=== PATIENT | male | born 1965 | race Caucasian/White ===

== ENCOUNTER 2021-02-17 13:20 | Emergency (ER) | payer OTHER, SELFPAY ==
[2021-02-17 14:00] VITALS: BP 142/85; PULSE 128; RESP 21; TEMP 39.1; O2SAT 94; BMI 27.6
--- NOTE | 2021-02-17 14:24 | XR_ITS ---
PROCEDURE INFORMATION: Exam: XR Chest Exam date and time: 02/17/2021 2:24 PM Age: 55 years old Clinical indication: Patient HX: H/o covid 12 days ago. C/O cough and fever TECHNIQUE: Imaging protocol: XR of the chest. Views: 2 views. COMPARISON: No relevant prior studies available. FINDINGS: Lungs: Diffuse patchy airspace opacities noted throughout the lungs bilaterally. Commonly reported imaging features of COVID-19 pneumonia are present. Pleural spaces: Unremarkable. No pleural effusion. No pneumothorax. Heart/Mediastinum: Unremarkable. No cardiomegaly. Bones/joints: The thoracic spine demonstrates mild degenerative changes at multiple levels. IMPRESSION: 1. Diffuse patchy airspace opacities noted throughout the lungs bilaterally. 2. Commonly reported imaging features of COVID-19 pneumonia are present. Other processes such as influenza pneumonia and organizing pneumonia, as can be seen with drug toxicity and connective tissue disease, can cause a similar imaging pattern. (Reference: Reyes) REFERENCES: Reyes Pineda, et al., Radiological Society of [place] Expert Consensus Statement on Reporting Chest CT Findings Related to COVID-19. Endorsed by the Society of Thoracic Radiology, the [place] [employer], and RSNA. Published December 13, 2019.
--- NOTE | 2021-02-17 14:59 | HMH.EDUTC ---
[facility] Disposition Clinical Impression: COVID-19, Viral pneumonia Disposition: Still a Patient Condition on Discharge: Fair Instructions: Preventing the Spread of Coronavirus Discharge Instructions Referrals: Provider,Referral, [Primary Care Provider] - Medical Decision Making - Medical Records Medical records reviewed: No: I reviewed the patient's medical records. - Juan Inquiry Pt receiving controlled substance: No Vital Signs: 02/17/21 14:00 Temperature 102.4 F H Temperature Source Oral Pulse Rate [Left Brachial] 128 H Respiratory Rate 21 Blood Pressure [Left Arm] 142/85 H Blood Pressure Mean [Left Arm] 104 Blood Pressure Source [Left Arm] Automatic Cuff Blood Pressure Position [Left Arm] Sitting 02 Sat by Pulse Oximetry 94 L Oxygen Delivery Method Room Air - Lab Data Lab results reviewed: Yes: I reviewed the patient's lab results. Lab Results 02/17/21 15:10: WBC 8.4, RBC 5.61, Hgb 17.1, Hct 48.9, MCV 87.1, MCH 30.5, MCHC 35.0, RDW 12.9, Plt Count 175, MPV 8.2, Neut % (Auto) 79.7, Lymph % (Auto) 16.4, [place] % (Auto) 3.5, Eos % (Auto) 0.1, Baso % (Auto) 0.4, Neut # (Auto) 6.7, Lymph # (Auto) 1.4, [place] # (Auto) 0.3, Eos # (Auto) 0.0, Baso # (Auto) 0.0 Result diagrams: 02/17/21 15:10 Orders (Tests/Meds): ED MEDICATIONS Discontinued Medications Generic Name Dose Route Start Last Admin Trade Name Freq PRN Reason Stop Dose Admin Ibuprofen 800 mg 02/17/21 14:28 02/17/21 14:36 Ibuprofen 400 Mg Tablet PO 02/17/21 14:29 800 mg ONCE ONE Administration ORDERS Category Date Time Status CMP [Comprehensive Metabolic Panel] Stat Lab 02/17/21 15:10 Received Medical Decision Narrative: He was transferred to the ER due to his chest x-ray appearance and his history of covid-19. [facility] HPI - General Stated complaint: covid postive, cough Time Seen by Provider: 02/17/21 14:30 Mode of Arrival: Ambulatory Source of Information: Patient Limitations: No Limitations Description of Symptoms (Recalled from Triage Doc. by RN): PATIENT C/O PRODUCTIVE COUGH WITH CLEAR SPUTUM. STATES HE TEST POSITIVE FOR COVID AND CAME OUT OF QUARANTINE 2 DAYS AGO HEENT Symptoms (Recalled from RN notes): No Resp Symptoms (Recalled from RN notes): Yes Skin Symptoms (Recalled from RN notes): No MS Symptoms (Recalled from RN notes): No Functional Status (Recalled from RN notes): WNL - History of Present Illness Provider Complaint: He has known he has covid-19 for the past 10 days. He was released from his quarentine 2 days ago. He states that over the past 2 days he has been having worsening chest congestion. He has also been running a fever since this morning. - Related Data Allergies Allergy/AdvReac Type Severity Reaction Status Date / Time No Known Allergies Allergy Verified 02/17/21 14:20 - Worker's Comp Is this a Worker's Comp case?: No [facility] History - Hepatitis A Screen Drug use history?: No High risk sexual behaviors?: No History of sexually transmitted infection?: No Currently employed?: No Childcare worker?: No Do you have indoor plumbing?: Yes Do you have electricity?: Yes Attestation statement:: This patient has been screened for Hepatitis A risk factors. I have reviewed the patient's past medical history: Yes - Social History Alcohol Intake: never Occupational Status: other ROS Obtained: Yes All systems reviewed & no additional complaints - Constitutional Constitutional: Reports system reviewed and no additional complaints, except as docu - Eyes Eyes: Reports system reviewed and no additional complaints, except as docu - ENT Ears, Nose, Mouth, and Throat: Reports system reviewed and no additional complaints, except as docu - Cardiovascular Cardiovascular: Reports system reviewed and no additional complaints, except as docu - Respiratory Respiratory: Reports system reviewed and no additional complaints, except as docu - Gastrointestinal Gastrointestin
[2021-02-17 15:29] LABS: Basophils % 0.4 % (0.1-2.0); Eosinophils % 0.1 % (0.1-12.0); Hematocrit 48.9 % (42.0-52.0); Hemoglobin 17.1 g/dL (14.1-18.0); Lymphocytes # 1.4 K/mm3 (0.7-4.5); Lymphocytes % 16.4 % (10-50); Mean Corpuscular Hemoglobin 30.5 pg (27.0-31.2); Mean Corpuscular Volume 87.1 fl (80-94); Mean Platelet Volume 8.2 fl (7.4-10.4); Monocytes # 0.3 K/mm3 (0.1-1.0); Monocytes % 3.5 % (1.7-9.3); Neutrophils # 6.7 K/mm3 (1.8-7.8); Neutrophils % 79.7 % (37.0-80.0); Platelet Count 175 K/mm3 (142-424); Red Blood Count 5.61 M/mm3 (4.60-6.20); Red Cell Distribution Width 12.9 % (11.5-17.5); White Blood Count 8.4 K/mm3 (4.8-10.8)
[2021-02-17 15:35] VITALS: PULSE 97; RESP 20; TEMP 37.1; O2SAT 95
--- NOTE | 2021-02-17 15:35 | PC.NURSE ---
PATIENT SENT TO ER PER Spencer WATTS APRN. REPORTS GIVEN TO Barbara FANG RN
[2021-02-17 15:37] LABS: Alanine Aminotransferase 26 U/L (12-78); Albumin Level 4.1 g/dl (3.5-5.0); Albumin/Globulin Ratio 1.3 (1.1-1.8); Alkaline Phosphatase 57 U/L (38-126); Aspartate Amino Transferase 44 U/L (17-59); Bilirubin,Total 1.1 mg/dl (0.2-1.3); Blood Urea Nitrogen 13 mg/dl (9-20); Calcium 8.3 mg/dl (8.4-10.2); Carbon Dioxide 30 mmol/L (22.0-30.0); Creatinine Clearance Estimated 121 mL/min (50-200); Estimated Glomerular Filt Rate 101 ml/min (>60); GFR (African American) 122 ML/MIN (>60); Globulin 3.2 g/dL (1.3-3.2); Glucose 175 mg/dl (74-100); Sodium 131 mmol/L (136-145); Total Protein,Serum 7.3 g/dl (6.3-8.2)
[2021-02-17 15:44] LABS: Chloride 95 mmol/L (98-107)
[2021-02-17 15:47] VITALS: BP 137/87; PULSE 96; RESP 20; TEMP 37.1; O2SAT 94; BMI 29.7
--- NOTE | 2021-02-17 16:02 | HMH.EDGENADL ---
ED Disposition Clinical Impression: COVID-19, Viral pneumonia Disposition: Home, Self-Care Condition on Discharge: Fair Instructions: Preventing the Spread of Coronavirus Discharge Instructions, DI for Atypical Pneumonia Additional Instructions: You have been evaluated for persistent cough. Likely due to atypical pneumonia, COVID-19. We cannot exclude a new pneumonia. Please take azithromycin as prescribed. Use Tessalon Perles. Follow-up with your primary care doctor for symptom recheck. Return to the emergency department if you have any new or worsening symptoms or if your oxygen saturation drops below 92%. Prescriptions: Benzonatate [Tessalon Perle 100mg Cap*] 100 mg PO TID PRN #15 cap PRN Reason: Cough Transmission Status: [facility] to [id number] Azithromycin [Z-Liam 250mg Tab] 250 mg PO DIRECTED #6 tab Transmission Status: P[facility] to [facility] Referrals: Provider,Referral, [Primary Care Provider] - Time of Disposition: 17:22 - Critical Care Critical Care Time: No Attestation: On 02/17/21, the high probability of a clinically significant, sudden or life threatening deterioration of the following system(s) required my full and direct attention, intervention and personal management. The time I documented below is in addition to time spent performing reported procedures but includes the following listed in this critical care notation. Medical Decision Making - Medical Records Medical records reviewed: Yes: I reviewed the patient's medical records. - Juan Inquiry Pt receiving controlled substance: No Vital Signs: 02/17/21 14:00 02/17/21 15:35 02/17/21 15:47 Temperature 102.4 F H 98.8 F 98.7 F Temperature Source Oral Oral Oral Pulse Rate [Left Brachial] 128 H 97 H 96 H Respiratory Rate 21 20 20 Blood Pressure [Left Arm] 142/85 H 137/87 Blood Pressure Mean [Left Arm] 104 103 Blood Pressure Source [Left Arm] Automatic Cuff Blood Pressure Position [Left Arm] Sitting Sitting 02 Sat by Pulse Oximetry 94 L 95 94 L Oxygen Delivery Method Room Air Room Air Room Air - Lab Data Lab Results 02/17/21 15:10: WBC 8.4, RBC 5.61, Hgb 17.1, Hct 48.9, MCV 87.1, MCH 30.5, MCHC 35.0, RDW 12.9, Plt Count 175, MPV 8.2, Neut % (Auto) 79.7, Lymph % (Auto) 16.4, [place] % (Auto) 3.5, Eos % (Auto) 0.1, Baso % (Auto) 0.4, Neut # (Auto) 6.7, Lymph # (Auto) 1.4, [place] # (Auto) 0.3, Eos # (Auto) 0.0, Baso # (Auto) 0.0 02/17/21 15:10: Sodium 131 L, Potassium 4.0, Chloride 95 L, Carbon Dioxide 30, Anion Gap 10.0, BUN 13, Creatinine 0.80, Estimated Creat Clear 121, Estimated GFR 101, Est GFR ( Amer) 122, Glucose 175 H, Calcium 8.3 L, Total Bilirubin 1.1, AST 44, ALT 26, Alkaline Phosphatase 57, Total Protein 7.3, Albumin 4.1, Globulin 3.2, Albumin/Globulin Ratio 1.3 Result diagrams: 02/17/21 15:10 02/17/21 15:10 Orders (Tests/Meds): ED MEDICATIONS Generic Name Dose Route Start Last Admin Trade Name Freq PRN Reason Stop Dose Admin Benzonatate 100 mg 02/17/21 16:15 02/17/21 16:10 Benzonatate 100mg Capsule PO 03/19/21 16:14 100 mg ONCE YURIY Administration Sodium Chloride 1,000 mls @ 999 mls/hr 02/17/21 16:00 02/17/21 16:01 Sod Chlor 0.9% 1000ml Bag IV 02/17/21 17:00 999 mls/hr .[id number] YURIY Administration Discontinued Medications Generic Name Dose Route Start Last Admin Trade Name Freq PRN Reason Stop Dose Admin Ibuprofen 800 mg 02/17/21 14:28 02/17/21 14:36 Ibuprofen 400 Mg Tablet PO 02/17/21 14:29 800 mg ONCE ONE Administration ORDERS Category Date Time Status EKG Request [ECG Request by /Geovanna] Stat Y 02/17/21 16:15 Ordered Medical Decision Narrative: In summary this is a 55-year-old male presenting to the emergency department on 10 days post Covid. He continues to have cough and generalized malaise. Concern for superimposed pneumonia. Will obtain CBC, CMP, chest x-ray Laboratory results show a low sodium at 131. Otherwise la
[2021-02-17 18:04] VITALS: BP 107/68; PULSE 90; RESP 18; TEMP 37.1; O2SAT 96
== END 2021-02-17 18:04 | disposition home or self-care (01) ==
LOC: UTC 15:37 → ER 15:45
PROVIDERS: Emergency Provider Nurse Practitioner Family
DX: J12.82 Pneumonia due to coronavirus disease 2019 (principal); U07.1 COVID-19
CPT/HCPCS: 71046; 80053; 85025; 96365; 99283

== ENCOUNTER 2021-02-21 11:30 | Observation (INO) | payer OTHER, SELFPAY ==
[2021-02-21] VITALS (15 sets, daily range): BP systolic 126–159; BP diastolic 76–111; PULSE 74–107; RESP 16–28; TEMP 36.7–37.1; O2SAT 92–98; BMI 25.9; BMI 25.8; BMI 25.6
--- NOTE | 2021-02-21 11:50 | PC.NURSE ---
PATIENT SENT TO ER PER Donte FIORE APRN. REPORT GIVEN TO Barbara FANG RN
--- NOTE | 2021-02-21 11:57 | HMH.EDGENADL ---
ED Disposition Clinical Impression: Pneumonia due to COVID-19 virus Respiratory failure with hypoxia Qualifiers: Chronicity: acute Qualified Code(s): J96.01 - Acute respiratory failure with hypoxia Disposition: Admitted As Inpatient Condition on Discharge: Fair - Critical Care Critical Care Time: No Attestation: On 02/21/21, the high probability of a clinically significant, sudden or life threatening deterioration of the following system(s) required my full and direct attention, intervention and personal management. The time I documented below is in addition to time spent performing reported procedures but includes the following listed in this critical care notation. Medical Decision Making - Medical Records Medical records reviewed: Yes: I reviewed the patient's medical records. MR Comment: Reviewed emergency department visit 02/17/2021. - Juan Inquiry Pt receiving controlled substance: No Vital Signs: 02/21/21 11:30 02/21/21 12:34 02/21/21 13:21 Temperature 98.6 F 98.1 F Temperature Source Oral Oral Pulse Rate [Left Brachial] 107 H 84 Respiratory Rate 28 H 16 Blood Pressure [Left Arm] 136/93 H 152/91 H Blood Pressure Mean [Left Arm] 107 111 Blood Pressure Source [Left Arm] Automatic Cuff Automatic Cuff Blood Pressure Position [Left Arm] Sitting Sitting 02 Sat by Pulse Oximetry 92 L 93 L 96 Oxygen Delivery Method Room Air Room Air Nasal Cannula Oxygen Flow Rate (LPM) 2 02/21/21 13:34 Temperature Temperature Source Pulse Rate [Left Brachial] 84 Respiratory Rate 16 Blood Pressure [Left Arm] 146/76 H Blood Pressure Mean [Left Arm] 99 Blood Pressure Source [Left Arm] Automatic Cuff Blood Pressure Position [Left Arm] Sitting 02 Sat by Pulse Oximetry 96 Oxygen Delivery Method Nasal Cannula Oxygen Flow Rate (LPM) 2 - Lab Data Lab Results 02/21/21 12:00: WBC 8.9, RBC 5.13, Hgb 15.7, Hct 44.0, MCV 85.7, MCH 30.5, MCHC 35.6 H, RDW 12.8, Plt Count 330 D, MPV 8.5, Neut % (Auto) 78.0, Lymph % (Auto) 16.0, [place] % (Auto) 4.9, Eos % (Auto) 0.5, Baso % (Auto) 0.6, Neut # (Auto) 7.0, Lymph # (Auto) 1.4, [place] # (Auto) 0.4, Eos # (Auto) 0.0, Baso # (Auto) 0.1 02/21/21 12:00: Lactate 1.1 02/21/21 12:00: Sodium 137, Potassium 3.2 L, Chloride 96 L, Carbon Dioxide 34 H, Anion Gap 10.2, BUN 11, Creatinine 0.70, Estimated Creat Clear 133, Estimated GFR 118, Est GFR ( Amer) 143, Glucose 183 H, Calcium 8.5, Total Bilirubin 1.3, AST 58, ALT 49, Alkaline Phosphatase 75, Total Protein 7.6, Albumin 3.8, Globulin 3.8 H, Albumin/Globulin Ratio 1.0 L Result diagrams: 02/21/21 12:00 02/21/21 12:00 Orders (Tests/Meds): ED MEDICATIONS Discontinued Medications Generic Name Dose Route Start Last Admin Trade Name Freq PRN Reason Stop Dose Admin Iopamidol 75 ml 02/21/21 12:32 02/21/21 12:34 Iopamidol-370 (76%);100ml Bottle IV 02/21/21 12:33 75 ml ONCE ONE Administration Iopamidol 75 ml 02/21/21 12:37 02/21/21 12:38 Iopamidol-370 (76%);100ml Bottle IV 02/21/21 12:38 75 ml ONCE ONE Administration Sodium Chloride 50 ml 02/21/21 12:35 02/21/21 12:38 0.9 % Sodium Chloride 50 Ml Vial IV 02/21/21 12:36 50 ml ONCE ONE Administration Sodium Chloride 50 ml 02/21/21 12:37 02/21/21 12:38 0.9 % Sodium Chloride 50 Ml Vial IV 02/21/21 12:38 50 ml ONCE ONE Administration ORDERS Category Date Time Status Covid-19 IgG/IgM ([facility]) Stat Lab 02/21/21 12:00 Received Full Resp Panel w/COVID ([facility]) Routine Lab 02/21/21 13:18 Received Blood Culture Stat Micro 02/21/21 12:00 Received - Radiology Data #1 Image(s): Chest Image Reviewed: Yes I reviewed the patient's radiology image, Yes I have reviewed radiologist's interpretation PROCEDURE: XR CHEST 2V CLINICAL HISTORY: SOA COMPARISON: CR XR CHEST 2V from 02/17/[address] ANGIO CHEST from 02/21/2021 FINDINGS: The cardiomediastinal silhouette and pulmonary vascularity are within normal limits
--- NOTE | 2021-02-21 12:07 | XR_ITS ---
PROCEDURE: XR CHEST 2V CLINICAL HISTORY: SOA COMPARISON: CR XR CHEST 2V from 02/17/[address] ANGIO CHEST from 02/21/2021 FINDINGS: The cardiomediastinal silhouette and pulmonary vascularity are within normal limits. Increasing areas of consolidation are present in the left upper, left lower, and right lower lobe consistent with bilateral pneumonia. No evidence of pneumothorax. No pleural effusion. No acute bony abnormalities. IMPRESSION: Worsening bilateral pneumonia Dictated by: Nathan Lopes MD 02/21/2021 12:47 Nathan Lopes MD in [place] 02/21/2021 12:47
--- NOTE | 2021-02-21 12:15 | CT_ITS ---
PROCEDURE: CT ANGIO CHEST CLINCIAL INDICATION: soa, covid COMPARISON: No exams were available for comparison TECHNIQUE: IV Contrast: 70ML Isovue 370 Axial images obtained with sagittal and coronal reformats. All CT scans at the facility use one or more dose reduction, viz: automated exposure control, ma/kV adjustment per patient size (including targeted exams where dose is matched to indication, i.e. head), or iterative reconstruction technique. FINDINGS: HEART AND MEDIASTINAL STRUCTURES: No evidence of aortic aneurysm or dissection. No central pulmonary embolus apparent. The peripheral pulmonary arteries are not well opacified but no obvious emboli are apparent. There are few scattered small mediastinal and hilar lymph nodes which may be reactive. LUNGS AND PLEURAL SPACES: There are multifocal bilateral areas ground-glass opacities along with areas of consolidation consistent with bilateral pneumonia. This is most prominent in the lower lobes and left upper lobe and is keeping with patient's history Covid19. No effusions are evident. No evidence of pneumothorax. BONY STRUCTURES: No acute bony abnormalities apparent. UPPER ABDOMEN: Fatty liver. There is a focal oval area of decreased density in the left hepatic lobe posteriorly segment 4 B and may represent a hepatic cyst ADDITIONAL FINDINGS: No other significant abnormalities. IMPRESSION: 1. No central or large pulmonary embolus apparent. Peripheral pulmonary arteries not well opacified. 2. Multifocal areas of ground-glass opacity and consolidation consistent with Covid19 pneumonia Dictated by: Nathan Lopes MD 02/21/2021 12:58 Nathan Lopes MD in [facility] 02/21/2021 12:58
[2021-02-21 12:27] LABS: Basophils # 0.1 K/mm3 (0-0.2); Basophils % 0.6 % (0.1-2.0); Eosinophils % 0.5 % (0.1-12.0); Hemoglobin 15.7 g/dL (14.1-18.0); Lymphocytes # 1.4 K/mm3 (0.7-4.5); Mean Corpuscular HGB Conc 35.6 g/dL (31.8-35.4); Mean Corpuscular Hemoglobin 30.5 pg (27.0-31.2); Mean Corpuscular Volume 85.7 fl (80-94); Mean Platelet Volume 8.5 fl (7.4-10.4); Monocytes # 0.4 K/mm3 (0.1-1.0); Monocytes % 4.9 % (1.7-9.3); Platelet Count 330 K/mm3 (142-424); Red Blood Count 5.13 M/mm3 (4.60-6.20); Red Cell Distribution Width 12.8 % (11.5-17.5); White Blood Count 8.9 K/mm3 (4.8-10.8)
[2021-02-21 12:30] LABS: Chloride 96 mmol/L (98-107); Sodium 137 mmol/L (136-145)
[2021-02-21 12:31] LABS: Potassium 3.2 mmoL/L (3.5-5.1)
[2021-02-21 12:33] LABS: Alanine Aminotransferase 49 U/L (12-78); Albumin Level 3.8 g/dl (3.5-5.0); Alkaline Phosphatase 75 U/L (38-126); Anion Gap 10.2 mEq/L (5-15); Aspartate Amino Transferase 58 U/L (17-59); Bilirubin,Total 1.3 mg/dl (0.2-1.3); Blood Urea Nitrogen 11 mg/dl (9-20); Carbon Dioxide 34 mmol/L (22.0-30.0); Creatinine Clearance Estimated 133 mL/min (50-200); Estimated Glomerular Filt Rate 118 ml/min (>60); GFR (African American) 143 ML/MIN (>60); Globulin 3.8 g/dL (1.3-3.2); Total Protein,Serum 7.6 g/dl (6.3-8.2)
[2021-02-21 12:34] LABS: Calcium 8.5 mg/dl (8.4-10.2); Glucose 183 mg/dl (74-100)
[2021-02-21 12:41] LABS: Lactic Acid 1.1 mmol/L (0.7-2.1)
[2021-02-21 13:22] LABS: Adenovirus,PCR Not Detected (NotDetected); Coronavirus 229E Not Detected (NotDetected); Coronavirus NL63 Not Detected (NotDetected); Coronovirus HKU1,PCR Not Detected (NotDetected)
[2021-02-21 13:23] LABS: Bordetella Pertussis Not Detected (NotDetected); Chlamydophila Pneumoniae, PCR Not Detected (NotDetected); Coronavirus OC43 Not Detected (NotDetected); Human Metapneumovirus Not Detected (NotDetected); Influenza A, PCR Not Detected (NotDetected); Influenza AH1, 2009 Not Detected (NotDetected); Influenza AH1, PCR Not Detected (NotDetected); Influenza AH3,PCR Not Detected (NotDetected); Influenza B, PCR Not Detected (NotDetected); Mycoplasma Pneumoniae, PCR Not Detected (NotDetected); Parainfluenza 1, PCR Not Detected (NotDetected); Parainfluenza 2, PCR Not Detected (NotDetected); Parainfluenza 3, PCR Not Detected (NotDetected); Parainfluenza 4, PCR Not Detected (NotDetected); Respiratory Syncytial Virus Not Detected (NotDetected); Rhinovirus/Enterovirus Not Detected (NotDetected)
--- NOTE | 2021-02-21 13:25 | PC.NURSE ---
DR PEREZ SPEAKING WITH DR OCHOA
--- NOTE | 2021-02-21 13:31 | PC.NURSE ---
notified CM of admission
[2021-02-21 14:01] LABS: Coronavirus 19 IgG Antibody Positive (Negative); Coronavirus 19 IgM Antibody Positive (Negative)
--- NOTE | 2021-02-21 14:05 | PC.NURSE ---
Dr. Canada at BS
--- NOTE | 2021-02-21 14:25 | HMH.HP ---
*Admission Date: 02/21/21 *Chief complaint: COVID Pneumonia *History of present illness: Mr. Cueva is an otherwise healthy 55yo WM with only a remote history of kidney stone as a teenager. He takes no home medications and reports he is rarely ill. 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 He reports being exposed to a coworker with COVID-19 on 02/05/21 and went into quarantine. He subsequently tested negative on Wednesday02/07/21 but was told that he would need to continue quarantine and retest because it was too early for an accurate result. He retested on Wednesday02/10/21 and received a positive result although he was still asymptomatic at that time. He began with cough and congestion on or around Wednesday02/12/21. When he began to have shortness of breath with exertion over the holiday weekend, he came to the [facility] on Wednesday02/17/21 and was diagnosed with bilateral pneumonia and started on azithromycin and benzonatate. He reports taking the last dose of azithromycin this morning, however, he has had worsening SOBOE since that time. He is unable to move around very much at home without needing a period of rest in order to catch his breath and O2 saturations have been low, so he returned to the [facility] today and was sent to the ED for evaluation for sats of 88% on RA. Laboratory workup was significant for hypokalemia. COVID-19 PCR was positive as well as IgM and IgG. CXR showed a worsening bilateral pneumonia and CT angio of the chest showed: 1. No central or large pulmonary embolus apparent. Peripheral pulmonary arteries not well opacified. 2. Multifocal areas of ground-glass opacity and consolidation consistent with Covid19 pneumonia. His case was discussed with Dr. Kan and he was admitted with orders for COVID-19 protocol and pulmonology consult. At the time of this writing, he is resting comfortably on the stretcher without complaint. His O2 remains stable at 96% on 2L/NC and he is able to speak in complete sentences. [facility] History I have reviewed the patient's past medical history: Yes Medical History: Reports:: Kidney Stones Denies:: Chronic Obstructive Pulmonary Disease (COPD), Coronary Artery Disease, Diabetes Mellitus Type 2 *Have you ever received a pneumonia vaccine?: No *Have you received a flu vaccine this season?: No Other Surgeries: Yes: No Previous Surgery Amputation: No Fractures: No - *Social History Last grade of school completed: High school graduate Smoking Status: Never smoker Alcohol Intake: never Substance Use Type: denies use *Occupational Status:: employed *Travel in the last 8 weeks: None Family Hx:: Coronary Artery Disease, Diabetes, Heart Attack, Kidney Disease Review of Systems - Constitutional Reports anorexia, Reports lack of energy, Denies body ache(s), Denies chills, Denies fever(s), Denies headache(s), Denies weakness - Eyes Denies blurry vision, Denies change in vision - ENT Reports dizziness, Reports ear pain, Denies difficulty swallowing, Denies facial pain, Denies headache(s), Denies nasal congestion, Denies nasal discharge, Denies post nasal drip, Denies sinus pain, Denies sinus pressure, Denies sore throat - *Cardiovascular Reports shortness of breath with activity, Denies chest pain, Denies generalized swelling, Denies leg swelling, Denies rapid, pounding, or irregular heartbeat - *Respiratory Reports chest congestion, Reports cough, Reports shortness of breath with activity, Denies pain on inspiration, Denies wheezing - *Gastrointestinal Denies abdominal pain, Denies change in stools, Denies loose stools, Denies heartburn, Denies nausea, Denies vomiting - *Genitourinary Denies difficulty urinating - *Musculoskeletal Denies muscle weakness, Denies body aches - *Neurologic Reports dizziness, Denies headache(s), Denies tingling/numbness/burning sensations Meds Home Medications
[2021-02-21 14:38] LABS: Coronavirus 19, PCR Detected (NotDetected)
--- NOTE | 2021-02-21 14:46 | PC.NURSE ---
Called report to Janis Palmer RN. ALEISHA Salcido taking pt to the floor
--- NOTE | 2021-02-21 15:03 | HMH.PHAINT ---
HOME MEDICATIONS RECONCILED FROM RX FILL HISTORY.
--- NOTE | 2021-02-21 19:06 | HMH.PULMCON ---
*Admission Date: 02/21/21 *Reason for consult:: HYpoxic respiratory failure *History of present illness: Mr. Cueva is a never smoked with no prior respiratory complaints recently diagnosed with COVID -19 pneumnoni as part of employee health screening post exposure resulted positive with no symptoms at the time of diagnosis presented with gradually worsening SOB with predominant cough and productive sputum and loss of taste and pulmonary was called for further management. [facility] History Medical History: Reports:: Kidney Stones Denies:: Cancer, Chronic Obstructive Pulmonary Disease (COPD), Coronary Artery Disease, Diabetes Mellitus Type 1, Diabetes Mellitus Type 2, MRSA *Have you ever received a pneumonia vaccine?: No *Have you received a flu vaccine this season?: No Other Surgeries: Yes: No Previous Surgery Amputation: No Fractures: No - *Social History Last grade of school completed: High school graduate Smoking Status: Never smoker Alcohol Intake: never Substance Use Type: denies use *Occupational Status:: employed Housing: house *Travel in the last 8 weeks: None Family Hx:: Coronary Artery Disease, Diabetes, Heart Attack, Kidney Disease ROS - Cons Reports lack of energy - Eyes Denies blurry vision - ENT Denies abnormal hearing - Card Reports shortness of breath, Reports shortness of breath with activity, Denies leg swelling - Resp Respiratory: Reports dyspnea on exertion, Reports excessive phlegm production, Denies coughing up blood, Denies pain on inspiration, Reports cough with sputum production - GI Gastrointestingal: Denies: abdominal pain - [place] Musculoskeletal: Denies abnormal gait Meds Home Medications Medication Instructions Recorded Confirmed Type Azithromycin [Zithromax 250mg 250 mg PO DAILY 02/21/21 02/21/21 History tab] Benzonatate [Benzonatate 100mg 100 mg PO TIDP PRN 02/21/21 02/21/21 History cap] Allergies Allergy/AdvReac Type Severity Reaction Status Date / Time No Known Allergies Allergy Verified 02/17/21 14:20 Exam - Constitutional Constitutional:: Present: no acute distress, comfortable - HENMT Exam HENMT: Present: normocephalic, atraumatic - Eye Exam Eyes:: Present: normal appearance both eyes and related structures - Neck Exam Neck:: Present: normal visual inspection - Respiratory Exam Respiratory:: Present: able to speak in complete sentences, no respiratory distress, crackles. Absent: wheezing - Cardiovascular Exam Cardiac:: Present: S1, S2 - GI Exam GI:: Present: soft - Skin Exam Skin: Present: warm, no rash, dry - Neurological Exam Neurological: Present: alert, awake, normal cognition - Extremities Exam Extremities: Present: no cyanosis, no clubbing, no edema Comments: Rt LE larger than Left. Internal Medicine - CN: Reslt - Labs CBC & Chem 7: 02/21/21 12:00 02/21/21 12:00 Labs: Short CBC 02/21/21 Range/Units 12:00 WBC 8.9 (4.8-10.8) K/mm3 Hgb 15.7 (14.1-18.0) g/dL Hct 44.0 (42.0-52.0) % Plt Count 330 D (142-424) K/mm3 BMP 02/21/21 12:00 Sodium 137 Potassium 3.2 L Chloride 96 L Carbon Dioxide 34 H BUN 11 Creatinine 0.70 Glucose 183 H Calcium 8.5 Liver Function 02/21/21 Range/Units 12:00 Total Bilirubin 1.3 (0.2-1.3) mg/dl AST 58 (17-59) U/L ALT 49 (12-78) U/L Alkaline Phosphatase 75 (38-126) U/L Albumin 3.8 (3.5-5.0) g/dl Assessment and Plan (1) Pneumonia due to COVID-19 virus Status: Acute Category: Medical Code(s): U07.1 - COVID-19; J12.82 - Pneumonia due to coronavirus disease 2019 (2) Respiratory failure with hypoxia Status: Acute Qualifiers: Chronicity: acute Qualified Code(s): J96.01 - Acute respiratory failure with hypoxia Category: Medical Code(s): J96.91 - Respiratory failure, unspecified with hypoxia (3) COVID-19 Status: Acute Category: Medical Code(s): U07.1 - COVID-19 - Assessment a
--- NOTE | 2021-02-21 19:37 | PC.NURSE ---
Addendum entered by Ary Ulloa CNA 02/21/21 21:21: NURSE WAS NOTIFIED. Original Note: RT NOTIFIED OF CA VENOUS DOPPLER ORDERED FOR PT. RT STATED IT WILL BE DONE Wednesday
[2021-02-21 20:17] LABS: C-Reactive Protein 198.7 mg/L (0-4); D-Dimer 0.86 ug/mL (0.0-0.5)
[2021-02-22] VITALS (7 sets, daily range): BP systolic 122–148; BP diastolic 83–101; PULSE 73–89; RESP 17–24; TEMP 36.4–36.6; O2SAT 92–98; BMI 25.7
[2021-02-22 00:26] LABS: POC Glucose,Bedside 267 (70-110)
--- NOTE | 2021-02-22 03:27 | PC.NURSE ---
shift summary pts lung sounds are clear with sats maintained 90% or above on 2L via NC, with a rate ranging from 16-18. pt is alert and oriented X4. pt is able to ambulate to restroom unassisted. there has been no acute changes. pt denies any pain, nausea, vomiting, or diarrhea.
[2021-02-22 07:14] LABS: Chloride 101 mmol/L (98-107); Potassium 3.9 mmoL/L (3.5-5.1); Sodium 137 mmol/L (136-145)
[2021-02-22 07:16] LABS: Alanine Aminotransferase 46 U/L (12-78); Aspartate Amino Transferase 44 U/L (17-59); Blood Urea Nitrogen 15 mg/dl (9-20); Creatinine Clearance Estimated 155 mL/min (50-200); Estimated Glomerular Filt Rate 141 ml/min (>60); GFR (African American) 171 ML/MIN (>60)
[2021-02-22 07:17] LABS: Albumin Level 3.4 g/dl (3.5-5.0); Alkaline Phosphatase 63 U/L (38-126); Anion Gap 9.9 mEq/L (5-15); Bilirubin,Total 0.7 mg/dl (0.2-1.3); Carbon Dioxide 30 mmol/L (22.0-30.0); Globulin 3.4 g/dL (1.3-3.2); Glucose 276 mg/dl (74-100); Total Protein,Serum 6.8 g/dl (6.3-8.2)
--- NOTE | 2021-02-22 10:32 | P.CONPHA_ITS ---
[facility] Pharmacy VTE Monitoring - Patient Demographics Admission date: 02/21/21 Report Date: 02/22/21 Time: 10:32 Allergies/Adverse Reactions: Patient Allergies No Known Allergies Allergy (Verified 02/17/21 14:20) Height: 1.73 m Weight: 76.884 kg Patient Problems: Current Active Problems COVID-19 (Acute) Pneumonia due to COVID-19 virus (Acute) Respiratory failure with hypoxia (Acute) - VTE Risk Labs: VTE Related Lab Results Hgb 15.7 g/dL (14.1-18.0) 02/21/21 12:00 Hct 44.0 % (42.0-52.0) 02/21/21 12:00 Plt Count 330 K/mm3 (142-424) D 02/21/21 12:00 BUN 15 mg/dl (9-20) D 02/22/21 06:47 Creatinine 0.60 mg/dl (0.66-1.25) L 02/22/21 06:47 Estimated Creat Clear 155 mL/min (50-200) 02/22/21 06:47 Was VTE Risk Assessment Performed: Yes VTE Score: 1 VTE Risk Level: Very Low Risk - Prophylaxis VTE Prophylaxis Ordered?: Yes Types of VTE Prophylaxis: Pharmacological Pharmacologic Type: Enoxaparin
--- NOTE | 2021-02-22 12:08 | HMH.ACPN2 ---
Internal Medicine - PN: Floridalma *Date: 02/22/21 *Time: 12:08 Interval history: He is clinically stable. He was able to get some sleep last night. The pulmonology note is reviewed. Discontinuation of remdesivir is recommended at this point in time. Again, with positive PCR and positive IgM IgG there is a good likelihood that he is passed shedding of replicative virus. Exam Vital signs and Labs for Last 24 Hours: Temp Pulse Resp BP Pulse Ox 97.9 F 79 18 134/88 96 02/22/21 11:28 02/22/21 11:28 02/22/21 11:02/22/21 11:02/22/21 11:28 Laboratory Results - last 24 hr 02/21/21 12:00: WBC 8.9, RBC 5.13, Hgb 15.7, Hct 44.0, MCV 85.7, MCH 30.5, MCHC 35.6 H, RDW 12.8, Plt Count 330 D, MPV 8.5, Neut % (Auto) 78.0, Lymph % (Auto) 16.0, [place] % (Auto) 4.9, Eos % (Auto) 0.5, Baso % (Auto) 0.6, Neut # (Auto) 7.0, Lymph # (Auto) 1.4, [place] # (Auto) 0.4, Eos # (Auto) 0.0, Baso # (Auto) 0.1 02/21/21 12:00: Lactate 1.1 02/21/21 12:00: Sodium 137, Potassium 3.2 L, Chloride 96 L, Carbon Dioxide 34 H, Anion Gap 10.2, BUN 11, Creatinine 0.70, Estimated Creat Clear 133, Estimated GFR 118, Est GFR ( Amer) 143, Glucose 183 H, Calcium 8.5, Total Bilirubin 1.3, AST 58, ALT 49, Alkaline Phosphatase 75, Total Protein 7.6, Albumin 3.8, Globulin 3.8 H, Albumin/Globulin Ratio 1.0 L 02/21/21 12:00: SARS-CoV-2 IgG Ab (Rapid) Positive A, SARS-CoV-2 IgM Ab (Rapid) Positive A 02/21/21 13:18: Chlamy pneumoniae PCR Not detected, Adenovirus (PCR) Not detected, B. pertussis DNA (PCR) Not detected, Coronavirus OC43 (PCR) Not detected, Coronavirus HKU1 (PCR) Not detected, Coronavirus 229E (PCR) Not detected, SARS-CoV-2 (PCR) Detected A, Coronavirus NL63 (PCR) Not detected, Human Metapneumovir PCR Not detected, Influenza A (H1) PCR Not detected, Influ A (H1N1/09) PCR Not detected, Influenza A (H3) PCR Not detected, Influenza Type A (PCR) Not detected, Influenza Type B (PCR) Not detected, M. pneumoniae (PCR) Not detected, Parainfluenza 1 (PCR) Not detected, Parainfluenza 2 (PCR) Not detected, Parainfluenza 3 (PCR) Not detected, Parainfluenza 4 (PCR) Not detected, RSV (PCR) Not detected, Entero/Rhino (PCR) Not detected 02/21/21 19:50: D-Dimer 0.86 H 02/21/21 19:50: C-Reactive Protein 198.7 H 02/22/21 00:19: POC Glucose 267 H 02/22/21 06:47: Sodium 137, Potassium 3.9 D, Chloride 101, Carbon Dioxide 30, Anion Gap 9.9, BUN 15 D, Creatinine 0.60 L, Estimated Creat Clear 155, Estimated GFR 141, Est GFR ( Amer) 171, Glucose 276 H D, Calcium 8.0 L, Total Bilirubin 0.7, AST 44, ALT 46, Alkaline Phosphatase 63, Total Protein 6.8, Albumin 3.4 L D, Globulin 3.4 H, Albumin/Globulin Ratio 1.0 L I & O for Last 24 hours: Intake & Output 02/20/21 02/21/21 02/22/21 02/23/21 11:59 11:59 11:59 11:59 Intake Total 814 / 814 Balance 814 / 814 Weight 171 lb 169 lb 8 oz - Constitutional no acute distress - *Routine HEENT Exam Head: Present: normocephalic Eye: Present: PERRL ENT: Present: mucous membranes moist - *Routine Respiratory Exam Present: decreased breath sounds (Deep cough) - *Routine Cardiovascular Exam Present: RRR - *Routine Abdominal Exam Present: soft. Absent: tenderness - *Routine Extremities Exam Absent: edema Assessment and Plan (1) Pneumonia due to COVID-19 virus Status: Acute Category: Medical Code(s): U07.1 - COVID-19; J12.82 - Pneumonia due to coronavirus disease 2019 (2) Respiratory failure with hypoxia Status: Acute Qualifiers: Chronicity: acute Qualified Code(s): J96.01 - Acute respiratory failure with hypoxia Category: Medical Code(s): J96.91 - Respiratory failure, unspecified with hypoxia (3) COVID-19 Status: Acute Category: Medical Code(s): U07.1 - COVID-19 - Assessment and plan all Dx Assessment and Plan for all problems:: DC remdesivir. Continue other meds.
--- NOTE | 2021-02-22 17:37 | PC.NURSE ---
PATIENT IS A&O X4, LUNGS ARE DIMINSHED, PULSES ARE EQUAL. PATIENT HAS HAD NO COMPLAINTS DURING THIS RN SHIFT. NO NEW CONCERNS OR NEEDS.
[2021-02-23] VITALS (7 sets, daily range): BP systolic 121–154; BP diastolic 75–95; PULSE 60–78; RESP 17–24; TEMP 36.5–37.1; O2SAT 92–98; BMI 25.9
--- NOTE | 2021-02-23 05:59 | PC.NURSE ---
Patient oriented times four. Patient admitted for COVID and PNA. Patient administered ABx times 2. Patient did not require pain medication this shift. Patient SpO2 WDL on 2 L n/c. Will continue to monitor for any acute changes.
[2021-02-23 07:59] LABS: Chloride 108 mmol/L (98-107); Potassium 3.4 mmoL/L (3.5-5.1); Sodium 139 mmol/L (136-145)
[2021-02-23 08:02] LABS: Alanine Aminotransferase 36 U/L (12-78); Albumin Level 3.1 g/dl (3.5-5.0); Alkaline Phosphatase 65 U/L (38-126); Anion Gap 6.4 mEq/L (5-15); Aspartate Amino Transferase 30 U/L (17-59); Bilirubin,Total 0.5 mg/dl (0.2-1.3); Blood Urea Nitrogen 14 mg/dl (9-20); Carbon Dioxide 28 mmol/L (22.0-30.0); Creatinine Clearance Estimated 157 mL/min (50-200); Estimated Glomerular Filt Rate 141 ml/min (>60); GFR (African American) 171 ML/MIN (>60); Globulin 3.1 g/dL (1.3-3.2); Total Protein,Serum 6.2 g/dl (6.3-8.2)
[2021-02-23 08:03] LABS: Glucose 225 mg/dl (74-100)
--- NOTE | 2021-02-23 12:33 | HMH.ACPN2 ---
Internal Medicine - PN: Subj *Date: 02/23/21 *Time: 12:33 Interval history: He is clinically stable. He states that he may be breathing a little bit easier. He has not removed his oxygen. His saturations are good with nasal O2. His breath sounds may be somewhat improved. He is in no respiratory distress. He has no leg edema. Exam Vital signs and Labs for Last 24 Hours: Temp Pulse Resp BP Pulse Ox 97.9 F 68 18 123/89 97 02/23/21 08:00 02/23/21 08:00 02/23/21 08:00 02/23/21 08:00 02/23/21 08:00 Laboratory Results - last 24 hr 02/23/21 07:37: Sodium 139, Potassium 3.4 L, Chloride 108 H, Carbon Dioxide 28, Anion Gap 6.4, BUN 14, Creatinine 0.60 L, Estimated Creat Clear 157, Estimated GFR 141, Est GFR ( Amer) 171, Glucose 225 H, Calcium 8.0 L, Total Bilirubin 0.5, AST 30 D, ALT 36, Alkaline Phosphatase 65, Total Protein 6.2 L, Albumin 3.1 L, Globulin 3.1, Albumin/Globulin Ratio 1.0 L I & O for Last 24 hours: Intake & Output 02/21/21 02/22/21 02/23/21 02/24/21 11:59 11:59 11:59 11:59 Intake Total 814 / 814 3864 / 3864 Balance 814 / 814 3864 / 3864 Weight 171 lb 169 lb 8 oz 171 lb 9 oz Microbiology Reports for the Last 24 Hours: Microbiology 02/21/21 12:00 Blood Blood Culture - Preliminary NO GROWTH AFTER 48 HOURS 02/21/21 12:00 Blood Blood Culture - Preliminary NO GROWTH AFTER 48 HOURS - Constitutional no acute distress - *Routine HEENT Exam Head: Present: normocephalic Eye: Present: PERRL ENT: Present: mucous membranes moist - *Routine Respiratory Exam Present: decreased breath sounds - *Routine Cardiovascular Exam Present: RRR - *Routine Abdominal Exam Present: soft. Absent: tenderness - *Routine Extremities Exam Absent: edema Assessment and Plan (1) Pneumonia due to COVID-19 virus Status: Acute Category: Medical Code(s): U07.1 - COVID-19; J12.82 - Pneumonia due to coronavirus disease 2019 (2) Respiratory failure with hypoxia Status: Acute Qualifiers: Chronicity: acute Qualified Code(s): J96.01 - Acute respiratory failure with hypoxia Category: Medical Code(s): J96.91 - Respiratory failure, unspecified with hypoxia (3) COVID-19 Status: Acute Category: Medical Code(s): U07.1 - COVID-19 - Assessment and plan all Dx Assessment and Plan for all problems:: Continue present regimen. Follow-up with pulmonary consult tomorrow. We may be able to discharge him soon.
--- NOTE | 2021-02-23 16:09 | PC.NURSE ---
pt has rested intermittently t/o shift. LS CTA, diminished in bilateral bases. VSS. O2 stable on 2LNC. pt ambulating in room independently. Pt tolerating diet well. Airborne/contact precautions maintained t/o shift. No complaints noted. Will continue to monitor.
[2021-02-24] VITALS: BP 136/86; PULSE 64; RESP 17; TEMP 36.5; O2SAT 98
--- NOTE | 2021-02-24 03:01 | PC.NURSE ---
A&OX4. PT TOLERATING 2LNC, WILL ATTEMPT TO WEAN O2. PT HAS HAD NO C/O PAIN/NA/VO/COUGH. PT INDEPENDENT IN ROOM. PT RESTING T/O MAJORITY OF NIGHT. COVID PRECAUTIONS IN PLACE. VSS WILL CONTINUE TO MONITOR.
[2021-02-24 04:00] VITALS: BP 137/78; PULSE 57; RESP 17; TEMP 36.2; O2SAT 97
[2021-02-24 05:40] VITALS: BMI 25.9
--- NOTE | 2021-02-24 05:52 | PC.NURSE ---
PT ON RA AT THIS TIME. 02 SAT 97%
[2021-02-24 08:00] VITALS: BP 129/76; PULSE 57; RESP 18; TEMP 36.7; O2SAT 96
--- NOTE | 2021-02-24 08:00 | CA_ITS ---
APPROVED REPORT Bilateral Lower Extremity Venous Study for DVT. Central Supply Assistant: Keri RCS, RVS Indications Swelling and Hypoxia, COVID-19 Vein Imaging CFV (R): compressive, spontaneous, phasic, augmentation FEM (R): compressive, spontaneous, phasic, augmentation POP (R): compressive, spontaneous, phasic, augmentation DFV (R): compressive, spontaneous, phasic, augmentation PTV (R): compressive, spontaneous, phasic, augmentation GSV (R): compressive, spontaneous, phasic, augmentation SSV (R): compressive, spontaneous, phasic, augmentation Peroneals (R):compressive, spontaneous, phasic, augmentation GAS (R): compressive, spontaneous, phasic, augmentation CFV (L): compressive, spontaneous, phasic, augmentation FEM (L): compressive, spontaneous, phasic, augmentation POP (L): compressive, spontaneous, phasic, augmentation DFV (L): compressive, spontaneous, phasic, augmentation PTV (L): compressive, spontaneous, phasic, augmentation GSV (L): compressive, spontaneous, phasic, augmentation SSV (L): compressive, spontaneous, phasic, augmentation Peroneals (L):compressive, spontaneous, phasic, augmentation GAS (L): compressive, spontaneous, phasic, augmentation Findings Color flow duplex demonstrates no evidence of DVT of the following bilateral lower extremity Veins:Common Femoral Vein, Femoral Vein, Popliteal Vein, Posterior Tibial Veins, Peroneal Veins, Deep Femoral Vein. Negative for DVT. Conclusion Negative for DVT. Electronically signed by : Nathan Lopes MD 02/24/2021 17:45:46
[2021-02-24 08:06] LABS: Chloride 108 mmol/L (98-107); Sodium 138 mmol/L (136-145)
[2021-02-24 08:07] LABS: Potassium 3.4 mmoL/L (3.5-5.1)
[2021-02-24 08:09] LABS: Alanine Aminotransferase 40 U/L (12-78); Albumin Level 3.1 g/dl (3.5-5.0); Alkaline Phosphatase 75 U/L (38-126); Anion Gap 7.4 mEq/L (5-15); Aspartate Amino Transferase 29 U/L (17-59); Bilirubin,Total 0.4 mg/dl (0.2-1.3); Blood Urea Nitrogen 12 mg/dl (9-20); Calcium 8.1 mg/dl (8.4-10.2); Carbon Dioxide 26 mmol/L (22.0-30.0); Creatinine Clearance Estimated 157 mL/min (50-200); Estimated Glomerular Filt Rate 141 ml/min (>60); GFR (African American) 171 ML/MIN (>60); Globulin 3.1 g/dL (1.3-3.2); Glucose 207 mg/dl (74-100); Total Protein,Serum 6.2 g/dl (6.3-8.2)
--- NOTE | 2021-02-24 08:21 | HMH.ACPN2 ---
Internal Medicine - PN: Subj *Date: 02/24/21 *Time: 08:21 Interval history: Patient thinks he is better. He states his breathing is better with minimal cough. He has been off oxygen since middle of last night with O2 sat this morning at 96%. He denies chest pain. He has been up to the bathroom. He is voiding QS and bowels have moved. He states his appetite is returning and taste is returning. Thus he is eating somewhat better. MRSA nasal culture is negative. Blood cultures show no growth at 48 hours. Laboratory data this morning shows a sodium of 138 and potassium of 3.4. BUN and creatinine are 12/0.6. Liver function studies are not elevated. Exam Vital signs and Labs for Last 24 Hours: Temp Pulse Resp BP Pulse Ox 97.1 F L 57 L 17 137/78 97 02/24/21 04:00 02/24/21 04:00 02/24/21 04:00 02/24/21 04:00 02/24/21 04:00 Laboratory Results - last 24 hr 02/24/21 07:49: Sodium 138, Potassium 3.4 L, Chloride 108 H, Carbon Dioxide 26, Anion Gap 7.4, BUN 12, Creatinine 0.60 L, Estimated Creat Clear 157, Estimated GFR 141, Est GFR ( Amer) 171, Glucose 207 H, Calcium 8.1 L, Total Bilirubin 0.4, AST 29, ALT 40, Alkaline Phosphatase 75, Total Protein 6.2 L, Albumin 3.1 L, Globulin 3.1, Albumin/Globulin Ratio 1.0 L I & O for Last 24 hours: Intake & Output 02/21/21 02/22/21 02/23/21 02/24/21 11:59 11:59 11:59 11:59 Intake Total 814 / 814 3864 / 3864 1499 / 1499 Balance 814 / 814 3864 / 3864 1499 / 1499 Weight 171 lb 169 lb 8 oz 171 lb 9 oz 171 lb 8 oz Microbiology Reports for the Last 24 Hours: Microbiology 02/22/21 13:50 Nose - Nasal MRSA Culture - Final Negative 02/21/21 12:00 Blood Blood Culture - Preliminary NO GROWTH AFTER 48 HOURS 02/21/21 12:00 Blood Blood Culture - Preliminary NO GROWTH AFTER 48 HOURS - Constitutional no acute distress (Sitting up in the bed and appears comfortable) - *Routine Respiratory Exam Present: CTA bilaterally, diminished air movement (Slightly in bases) Comments: Talks in complete sentences without dyspnea - *Routine Cardiovascular Exam Present: RRR - *Routine Abdominal Exam Present: soft, normoactive bowel sounds. Absent: tenderness - *Routine Extremities Exam Present: pulses intact. Absent: edema, calf tenderness, palpable cord Comments: Right leg is somewhat larger than the left. - *Routine Skin Exam Present: dry, warm Comments: Good color - *Routine Neurological Exam Present: alert, oriented X3 Assessment and Plan (1) Pneumonia due to COVID-19 virus Status: Acute Category: Medical Code(s): U07.1 - COVID-19; J12.82 - Pneumonia due to coronavirus disease 2018 (2) Respiratory failure with hypoxia Status: Acute Qualifiers: Chronicity: acute Qualified Code(s): J96.01 - Acute respiratory failure with hypoxia Category: Medical Code(s): J96.91 - Respiratory failure, unspecified with hypoxia (3) COVID-19 Status: Acute Category: Medical Code(s): U07.1 - COVID-19 - Assessment and plan all Dx Assessment and Plan for all problems:: Continue current care. Pulmonary continues to follow. Continue with potassium.
[2021-02-24 08:31] LABS: Platelet Count 246 K/mm3 (142-424)
--- NOTE | 2021-02-24 08:55 | P.PN_ITS ---
Internal Medicine - PN: Subj *Date: 02/24/21 *Time: 08:55 Exam Vital signs and Labs for Last 24 Hours: Temp Pulse Resp BP Pulse Ox 97.1 F L 57 L 17 137/78 97 02/24/21 04:00 02/24/21 04:00 02/24/21 04:00 02/24/21 04:00 02/24/21 04:00 Laboratory Results - last 24 hr 02/24/21 07:49: Sodium 138, Potassium 3.4 L, Chloride 108 H, Carbon Dioxide 26, Anion Gap 7.4, BUN 12, Creatinine 0.60 L, Estimated Creat Clear 157, Estimated GFR 141, Est GFR ( Amer) 171, Glucose 207 H, Calcium 8.1 L, Total Bilirub in 0.4, AST 29, ALT 40, Alkaline Phosphatase 75, Total Protein 6.2 L, Albumin 3.1 L, Globulin 3.1, Albumin/Globulin Ratio 1.0 L 02/24/21 07:49: Plt Count 246 D I & O for Last 24 hours: Intake & Output 02/21/21 02/22/21 02/23/21 02/24/21 23:59 23:59 23:59 23:59 Intake Total 574 / 574 1969 / 3633 Balance 574 / 574 1969 / 3 Weight 76.402 kg 76.884 kg 77.819 kg 77.791 kg Microbiology Reports for the Last 24 Hours: Microbiology 02/22/21 13:50 Nose - Nasal MRSA Culture - Final Negative 02/21/21 12:00 Blood Blood Culture - Preliminary NO GROWTH AFTER 48 HOURS 02/21/21 12:00 Blood Blood Culture - Preliminary NO GROWTH AFTER 48 HOURS Assessment and Plan (1) Pneumonia due to COVID-19 virus Status: Acute Category: Medical Code(s): U07.1 - COVID-19; J12.82 - Pneumonia due to coronavirus disease 2019 (2) Respiratory failure with hypoxia Status: Acute Qualifiers: Chronicity: acute Qualified Code(s): J96.01 - Acute respiratory failure with hypoxia Category: Medical Code(s): J96.91 - Respiratory failure, unspecified with hypoxia (3) COVID-19 Status: Acute Category: Medical Code(s): U07.1 - COVID-19 The patient's infection will respond to the chosen ABx?: Yes Is the patient receiving the right drug, dose, and route?: Yes Could a more targeted ABx be ordered?: No (CEFTRIAXONE CONT, MRSA NASAL (-), BLOOD CX (-), DOXY D/C ON 02/22.)
[2021-02-24 09:37] VITALS: O2SAT 95
--- NOTE | 2021-02-24 10:22 | HMH.PULMPN ---
Internal Medicine - PN: Subj *Date: 02/24/21 *Time: 10:22 Interval history: No acute respiratory events over the weekend. Exam - Constitutional Constitutional:: Present: no acute distress, comfortable - HENMT Exam HENMT: Present: normocephalic - Eye Exam Eyes:: Present: normal appearance both eyes and related structures - Neck Exam Neck:: Present: normal visual inspection - Respiratory Exam Respiratory:: Present: able to speak in complete sentences, lungs clear, normal breath sounds, no respiratory distress - GI Exam GI:: Present: soft - Skin Exam Skin: Present: warm, no rash, dry - Neurological Exam Neurological: Present: alert, awake, normal cognition - Extremities Exam Extremities: Present: no cyanosis, no clubbing, no edema Assessment and Plan (1) Pneumonia due to COVID-19 virus Status: Acute Category: Medical Code(s): U07.1 - COVID-19; J12.82 - Pneumonia due to coronavirus disease 2019 (2) Respiratory failure with hypoxia Status: Acute Qualifiers: Chronicity: acute Qualified Code(s): J96.01 - Acute respiratory failure with hypoxia Category: Medical Code(s): J96.91 - Respiratory failure, unspecified with hypoxia (3) COVID-19 Status: Acute Category: Medical Code(s): U07.1 - COVID-19 - Assessment and plan all Dx Assessment and Plan for all problems:: # COVID 19 Pneumonia # CAP: # Respiratory Failure with Hypoxia: Mr. Cueva is a never smoked with no prior respiratory complaints recently diagnosed with COVID -19 pneumnoni as part of employee health screening post exposure resulted positive with no symptoms at the time of diagnosis presented with gradually worsening SOB with predominant cough and productive sputum and loss of taste and pulmonary wPt also recently received Azithromycin for his respiratory symptoms CXR on admission showed worsenig pulmonary infiltrates and CTA though not optimal contrast timing did not showed any obvious evidence of PE, showed bilateral patch pulmonary infiltrates. Patient 2 weeks post symptom onset and COVID PCR and Ab testing resulted positive. Patient on admission was initiated on ceftriaxone and doxycycline along with dexamethasone. Remdesivir was not initiated patient was 2 weeks into symptoms. Nasal MRSA PCR resulted negative. CRP was 198.7. D-dimer slightly elevated at 0.86, however CTA and Doppler negative for PE. Patient respiratory significantly lower than currently on room air this morning with no respiratory distress. Plan: - De-escalate dexamethasone to prednisone 40 to complete a total of 14-day course - CAP treatment with Ceftriaxone and Doxycycline, can de-escalate to levofloxacin to control complete total of 7-day course from admission - Symbicort every 6 hours as needed on discharge Thank for involving pulmonary in patient care. We will follow patient in pulmonary clinic in 2 weeks with a 6-minute walk test during his clinic visit.
--- NOTE | 2021-02-24 10:27 | PC.NURSE ---
Pt reminded of need for sputum. Pt verbalized understanding and will let staff know if he able to produce in sputum in speci cup at bedside.
[2021-02-24 11:34] VITALS: BP 146/92; PULSE 77; RESP 20; TEMP 36.8; O2SAT 96
[2021-02-24 12:01] VITALS: BP 142/87; PULSE 64; RESP 17; TEMP 36.7; O2SAT 97
--- NOTE | 2021-02-27 10:06 | HMH.DCSUM ---
General - General Admission date:: 02/21/21 Discharge date: 02/24/21 HPI HPI: Mr. Cueva is an otherwise healthy 55yo WM with only a remote history of kidney stone as a teenager. He takes no home medications and reports he is rarely ill. 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 He reports being exposed to a coworker with COVID-19 on 02/05/21 and went into quarantine. He subsequently tested negative on Wednesday02/07/21 but was told that he would need to continue quarantine and retest because it was too early for an accurate result. He retested on Wednesday02/10/21 and received a positive result although he was still asymptomatic at that time. He began with cough and congestion on or around Wednesday02/12/21. When he began to have shortness of breath with exertion over the holiday weekend, he came [place] [facility] [place] and was diagnosed with bilateral pneumonia and started on azithromycin and benzonatate. He reports taking the last dose of azithromycin this morning, however, he has had worsening SOBOE since that time. He is unable to move around very much at home without needing a period of rest in order to catch his breath and O2 saturations have been low, so he returned to the [facility] today and was sent to the ED for evaluation for sats of 88% on RA. Laboratory workup was significant for hypokalemia. COVID-19 PCR was positive as well as IgM and IgG. CXR showed a worsening bilateral pneumonia and CT angio of the chest showed: 1. No central or large pulmonary embolus apparent. Peripheral pulmonary arteries not well opacified. 2. Multifocal areas of ground-glass opacity and consolidation consistent with Covid19 pneumonia. His case was discussed with Dr. Kan and he was admitted with orders for COVID-19 protocol and pulmonology consult. At the time of this writing, he is resting comfortably on the stretcher without complaint. His O2 remains stable at 96% on 2L/NC and he is able to speak in complete sentences. Hospital Course Hospital Course: The patient was started on remdesivir, dexamethasone, and zinc. Pulmonology was consulted. His CTA showed worsening pulmonary infiltrates but no PE. As he was 2 weeks post symptom onset, pulmonology recommended discontinuing remdesivir and continuing dexamethasone daily. He also recommended treatment for his pneumonia with Rocephin and doxycycline. He added duo nebs and budesonide as well. The patient had swelling in his right lower extremity, therefore a venous Doppler was ordered. It was negative for DVT. By 02/24/2021, the patient was feeling better and he was able to be weaned off of his oxygen with sats in the mid to upper 90s. He was able to move about his room. His blood cultures were negative. His dexamethasone was de-escalating to prednisone 40 mg for total of 14 days and he was continued on Rocephin and doxycycline. Pulmonology felt this could be deescalated to Levaquin for 7 days upon discharge. He also wanted him to start on Symbicort at discharge. The patient was stable to be discharged home will follow up with pulmonology. Objective Vital signs: Temp Pulse Resp BP Pulse Ox 98.0 F 64 17 142/87 H 97 02/24/21 12:01 02/24/21 12:01 02/24/21 12:01 02/24/21 12:01 02/24/21 12:01 Narrative: - Constitutional no acute distress - *Routine HEENT Exam Head: Present: normocephalic, atraumatic Eye: Present: EOMI, PERRL, normal accommodation ENT: Present: mucous membranes moist, nares patent. Absent: sinus tenderness - *Routine Neck Exam Present: supple, full ROM. Absent: lymphadenopathy, thyromegaly, tenderness - *Routine Respiratory Exam Absent: respiratory distress Comments: generally diminished R > L, no wheeze, no rhonchi - *Routine Cardiovascular Exam Present: RRR - *Routine Abdominal Exam Present: soft, normoactive bowel sounds. Abs
== END 2021-02-24 14:34 | disposition home or self-care (01) ==
LOC: UTC 11:33 → ER 11:57 → 2ND 13:39
PROVIDERS: Internal Medicine Pulmonary Disease; Admitting Provider Family Medicine; Emergency Provider Emergency Medicine; Visit Provider Family Medicine
DX: U07.1 COVID-19 (principal); J12.82 Pneumonia due to coronavirus disease 2019; J96.01 Acute respiratory failure with hypoxia
CPT/HCPCS: 36415; 71046; 71275; 80053; 82962; 83605; 85025; 85049; 85378; 86140; 86328; 87040; 87081; 87581; 87633; 87798; 93306; 93970; 94760; 99284; G0378; Q9967